=== PATIENT | male | born 1940 | race Caucasian/White ===

== ENCOUNTER 2016-11-26 11:03 | Inpatient (IN) | payer OTHER, BC ==
[~2016-11-26] VITALS: Ht 172.7 cm; Wt 92.3 kg
[~2016-11-26 11:03] MED LIST: ALLOPURINOL100 MG PO; AMLODIPINE BESYL5 MG PO; ATOVAQUONE750 MG/5 M PO; CALCITRIOL0.25 MCG PO; CALCIUM 500 +1 EAC4 PO; CELLCEPT500 MG PO; CO Q-10 RED YE1 EACH PO; CO Q-10100 MG PO; CO Q-10200 MG PO; CRESTOR40 MG PO; DAILY MULTIPLE1 EACH PO; ENDOCET 5-3251 EACH PO; FINASTERIDE5 MG PO; FLOMAX0.4 MG PO; FOSRENOL500 MG PO; FUROSEMIDE40 MG PO; HYDROXYCHLOROQ200 MG PO; IRON325 M1 PO; LASIX40 MG PO; METOPROLOL SUC100 MG PO; MYCOPHENOLATE500 MG PO; PLAQUENIL200 MG PO; PREDNISONE10 M1 PO; RED YEAST RICE600 M1 PO; SODIUM BICARBO325 MG PO; TAMSULOSIN HCL0.4 MG PO; TOPROL XL50 MG PO; VITAMIN B-122500 MCG SL; VITAMIN B-12500 MC5 SL
[2016-11-26 11:53] LABS: EOSINOPHIL (%) 3.9 % (0-5); EOSINOPHIL COUNT 0.1 K/uL (0-0.3); HEMATOCRIT 28.5 % (38.0-50.0); IMMATURE GRANULOCYTE (%) 0.3 % (0.0-0.7); IMMATURE GRANULOCYTE COUNT 0.1 K/uL; LYMPHOCYTE COUNT 1.1 K/uL (1.0-2.8); MCH 34.1 PG (29.0-34.0); MCHC 33.3 G/DL (30.0-36.0); MCV 102.2 FL (86-99); MEAN PLAT.VOLUME 10.4 uM^3 (9.0-12.4); MONOCYTE (%) 14.6 % (3-12); MONOCYTE COUNT 0.5 K/uL (0-0.8); NEUTROPHIL (%) 50.6 % (45-76); NEUTROPHIL COUNT 1.8 K/uL (1.8-6.4); PLATELET COUNT 77 K/uL (156-360); RBC DIS.WIDTH-CV 13.8 % (11.8-14.6); RBC DIS.WIDTH-SD 49.5 % (39-53); RED BLOOD COUNT 2.79 M/uL (4.00-5.50); WHITE BLOOD COUNT 3.6 K/uL (4.1-10.2)
[2016-11-26 12:10] LABS: CHLORIDE 106 mEq/L (99-109); SODIUM 136 mEq/L (136-147)
[2016-11-26 12:11] LABS: GLUCOSE 85 mg/dL (70-99)
[2016-11-26 12:13] LABS: ANION GAP 13 MEQ/L (2-14); POTASSIUM 6.2 mEq/L (3.7-5.4)
[2016-11-26 12:14] LABS: TROP-I INTERPRETATION NEGATIVE; TROPONIN-I 0.06 ng/mL (0.0-0.30)
[2016-11-26 12:15] LABS: GFR ESTIMATE (CALCULATED) 13 mL/min/
[2016-11-26 12:17] LABS: UREA NITROGEN (BUN) 138 mg/dL (9-23)
[2016-11-26 13:14] LABS: ADD MIUA? NO; BILIRUBIN NEGATIVE; BLOOD NEGATIVE; COLOR YELLOW ((YELLOW)); GLUCOSE (STRIP) NEGATIVE; KETONES NEGATIVE; LEUKOCYTES NEGATIVE; NITRITE NEGATIVE; PROTEIN (STRIP) NEGATIVE; SPECIFIC GRAVITY 1.015 (1.000-1.030); UROBILINOGEN 0.2 MG/DL (0.2-1.0)
[2016-11-26 19:25] LABS: CHLORIDE 107 mEq/L (99-109); POTASSIUM 5.9 mEq/L (3.7-5.4); SODIUM 137 mEq/L (136-147)
[2016-11-26 19:26] LABS: GLUCOSE 98 mg/dL (70-99)
[2016-11-26 19:28] LABS: ANION GAP 13 MEQ/L (2-14)
[2016-11-26 19:30] LABS: GFR ESTIMATE (CALCULATED) 13 mL/min/
[2016-11-26 19:35] LABS: UREA NITROGEN (BUN) 136 mg/dL (9-23)
[2016-11-26 21:23] VITALS: BP 134/75
[2016-11-27 00:33] VITALS: BP 139/71
[2016-11-27 03:52] VITALS: BP 141/68
[2016-11-27 06:03] LABS: HEMATOCRIT 26.2 % (38.0-50.0); MCH 34.4 PG (29.0-34.0); MCV 101.2 FL (86-99); MEAN PLAT.VOLUME 11.1 uM^3 (9.0-12.4); PLATELET COUNT 82 K/uL (156-360); RBC DIS.WIDTH-CV 14.3 % (11.8-14.6); RBC DIS.WIDTH-SD 52.7 % (39-53); RED BLOOD COUNT 2.59 M/uL (4.00-5.50); WHITE BLOOD COUNT 3.9 K/uL (4.1-10.2)
[2016-11-27 06:11] LABS: EOSINOPHIL (%) 3.3 % (0-5); EOSINOPHIL COUNT 0.1 K/uL (0-0.3); IMMATURE GRANULOCYTE (%) 0.3 % (0.0-0.7); MONOCYTE (%) 11.3 % (3-12); MONOCYTE COUNT 0.4 K/uL (0-0.8); NEUTROPHIL (%) 59.8 % (45-76); NEUTROPHIL COUNT 2.3 K/uL (1.8-6.4)
[2016-11-27 06:47] LABS: ALKALINE PHOSPHATASE 330 IU/L (3-129); ANION GAP 13 MEQ/L (2-14); ANION GAP 15 MEQ/L (2-14); CHLORIDE 101 MEQ/L (99-109); CHLORIDE 99 MEQ/L (99-109); GFR ESTIMATE (CALCULATED) 14 mL/min/; GLUCOSE 107 mg/dL (70-99); MAGNESIUM 2.7 mg/dl (1.3-2.7); POTASSIUM 5.2 MEQ/L (3.7-5.4); POTASSIUM 5.3 MEQ/L (3.7-5.4); SAMPLE HEMOLYSIS CHECK 0; SAMPLE ICTERIC CHECK 0; SAMPLE LIPEMIA CHECK 0; SODIUM 134 MEQ/L (136-147); TOTAL BILIRUBIN 1.6 MG/DL (0.0-1.0); URIC ACID 8.3 mg/dL (3.1-9.2)
[2016-11-27 06:53] LABS: UREA NITROGEN (BUN) 127 mg/dL (9-23)
[2016-11-27 06:54] LABS: UREA NITROGEN (BUN) 127 mg/dL (9-23)
[2016-11-27 08:03] VITALS: BP 129/71
[2016-11-27 12:39] VITALS: BP 122/61
[2016-11-27 15:50] VITALS: BP 123/73
[2016-11-27 17:40] LABS: FERRITIN 702 NG/ML (22-322)
[2016-11-27 17:55] LABS: IRON 91 MCG/DL (35-150)
[2016-11-27 20:06] VITALS: BP 145/80
[2016-11-28] VITALS: BP 119/76
[2016-11-28 04:00] VITALS: BP 126/72
[2016-11-28 06:39] LABS: EOSINOPHIL (%) 2.4 % (0-5); EOSINOPHIL COUNT 0.1 K/uL (0-0.3); HEMATOCRIT 25.1 % (38.0-50.0); LYMPHOCYTE COUNT 0.9 K/uL (1.0-2.8); MCH 34.1 PG (29.0-34.0); MCHC 33.9 G/DL (30.0-36.0); MCV 100.8 FL (86-99); MEAN PLAT.VOLUME 11.1 uM^3 (9.0-12.4); MONOCYTE (%) 13.6 % (3-12); MONOCYTE COUNT 0.5 K/uL (0-0.8); NEUTROPHIL COUNT 2.3 K/uL (1.8-6.4); PLATELET COUNT 79 K/uL (156-360); RBC DIS.WIDTH-CV 14.2 % (11.8-14.6); RBC DIS.WIDTH-SD 51.9 % (39-53); RED BLOOD COUNT 2.49 M/uL (4.00-5.50); WHITE BLOOD COUNT 3.8 K/uL (4.1-10.2)
[2016-11-28 07:20] LABS: ANION GAP 10 MEQ/L (2-14); CHLORIDE 101 MEQ/L (99-109); GFR ESTIMATE (CALCULATED) 20 mL/min/; GLUCOSE 85 mg/dL (70-99); POTASSIUM 4.5 MEQ/L (3.7-5.4); SAMPLE HEMOLYSIS CHECK 0; SAMPLE ICTERIC CHECK 0; SAMPLE LIPEMIA CHECK 0; SODIUM 137 MEQ/L (136-147); UREA NITROGEN (BUN) 78 mg/dL (9-23)
[2016-11-28 12:00] VITALS: BP 132/80
[2016-11-28 12:05] LABS: AHBS INDEX 0; HEPATITIS B SURFACE ANTIBODY Nonreactive; HPCA INDEX 0.25
[2016-11-28 12:11] LABS: ANTI-HEPATITIS B CORE (TOTAL) Nonreactive; HBSG INDEX 0.18
[2016-11-28 12:12] LABS: ANTI-HEPATITIS A VIRUS (IGM) Nonreactive; HAV INDEX 0.27; HPCA INDEX 0.28
[2016-11-28 12:13] LABS: ANTI-HEPATITIS B CORE (IGM) Nonreactive; HBC IgM INDEX 0.06
[2016-11-28 16:00] VITALS: BP 120/72
[2016-11-28 19:35] VITALS: BP 125/72
[2016-11-29] VITALS: BP 126/65
[2016-11-29 04:00] VITALS: BP 127/71
[2016-11-29 07:26] LABS: EOSINOPHIL (%) 3.8 % (0-5); EOSINOPHIL COUNT 0.1 K/uL (0-0.3); HEMATOCRIT 26.2 % (38.0-50.0); IMMATURE GRANULOCYTE (%) 0.3 % (0.0-0.7); LYMPHOCYTE COUNT 0.9 K/uL (1.0-2.8); MCH 33.9 PG (29.0-34.0); MCHC 33.2 G/DL (30.0-36.0); MCV 101.9 FL (86-99); MEAN PLAT.VOLUME 11.1 uM^3 (9.0-12.4); MONOCYTE (%) 14.1 % (3-12); MONOCYTE COUNT 0.5 K/uL (0-0.8); NEUTROPHIL COUNT 2.1 K/uL (1.8-6.4); PLATELET COUNT 77 K/uL (156-360); RBC DIS.WIDTH-CV 14.4 % (11.8-14.6); RBC DIS.WIDTH-SD 53.4 % (39-53); RED BLOOD COUNT 2.57 M/uL (4.00-5.50); WHITE BLOOD COUNT 3.7 K/uL (4.1-10.2)
[2016-11-29 07:32] LABS: ANION GAP 9 MEQ/L (2-14); CHLORIDE 100 MEQ/L (99-109); GFR ESTIMATE (CALCULATED) 22 mL/min/; GLUCOSE 79 mg/dL (70-99); POTASSIUM 4.2 MEQ/L (3.7-5.4); SAMPLE HEMOLYSIS CHECK 0; SAMPLE ICTERIC CHECK 0; SAMPLE LIPEMIA CHECK 0; SODIUM 137 MEQ/L (136-147); UREA NITROGEN (BUN) 54 mg/dL (9-23)
[2016-11-29 07:33] VITALS: BP 124/77
[2016-11-29 12:18] VITALS: BP 109/69
[2016-11-29 15:38] VITALS: BP 122/69
[2016-11-29 20:00] VITALS: BP 121/69
[2016-11-30] VITALS: BP 115/76
[2016-11-30 04:00] VITALS: BP 101/51
[2016-11-30 07:20] LABS: EOSINOPHIL COUNT 0.2 K/uL (0-0.3); HEMATOCRIT 27.5 % (38.0-50.0); IMMATURE GRANULOCYTE (%) 0.2 % (0.0-0.7); LYMPHOCYTE COUNT 1.1 K/uL (1.0-2.8); MCHC 33.1 G/DL (30.0-36.0); MCV 102.6 FL (86-99); MEAN PLAT.VOLUME 11.1 uM^3 (9.0-12.4); MONOCYTE (%) 13.9 % (3-12); MONOCYTE COUNT 0.6 K/uL (0-0.8); NEUTROPHIL (%) 53.8 % (45-76); NEUTROPHIL COUNT 2.2 K/uL (1.8-6.4); PLATELET COUNT 81 K/uL (156-360); RBC DIS.WIDTH-CV 14.3 % (11.8-14.6); RBC DIS.WIDTH-SD 53.7 % (39-53); RED BLOOD COUNT 2.68 M/uL (4.00-5.50)
[2016-11-30 07:38] LABS: ANION GAP 9 MEQ/L (2-14); CHLORIDE 97 MEQ/L (99-109); GFR ESTIMATE (CALCULATED) 19 mL/min/; GLUCOSE 76 mg/dL (70-99); POTASSIUM 4.6 MEQ/L (3.7-5.4); SAMPLE HEMOLYSIS CHECK 0; SAMPLE ICTERIC CHECK 0; SAMPLE LIPEMIA CHECK 0; SODIUM 133 MEQ/L (136-147); UREA NITROGEN (BUN) 69 mg/dL (9-23)
[2016-11-30 08:14] VITALS: BP 98/62
[2016-11-30 16:00] VITALS: BP 115/69
[2016-11-30] MEDS ORDERED: METOPROLOL SUCC50 MG PO (16:52)
== END 2016-11-30 18:31 | disposition home or self-care (01) | DRG 683 ==
LOC: EME 11:03 → 5SOUTH 14:42 → EDOF 14:42 → 5SOUTH 14:42
PROVIDERS: Emergency Medicine; Hospitalist; Internal Medicine; Internal Medicine Nephrology
PROC: 0HQ1XZZ Repair Face Skin, External Approach (ICD-10-PCS; principal; 2016-11-26)
PROC: 5A1D60Z (ICD-10-PCS; 2016-11-27)
DX: N17.9 Acute kidney failure, unspecified (principal); I13.2 Hypertensive heart and chronic kidney disease with heart failure and with stage 5 chronic kidney disease, or end stage renal disease; E87.2 Acidosis; D61.818 Other pancytopenia; M32.14 Glomerular disease in systemic lupus erythematosus; E87.5 Hyperkalemia; E86.0 Dehydration; S02.2XXA Fracture of nasal bones, initial encounter for closed fracture; S00.03XA Contusion of scalp, initial encounter; W01.10XA Fall on same level from slipping, tripping and stumbling with subsequent striking against unspecified object, initial encounter; I25.10 Atherosclerotic heart disease of native coronary artery without angina pectoris; I50.42 Chronic combined systolic (congestive) and diastolic (congestive) heart failure; N18.5 Chronic kidney disease, stage 5; R55 Syncope and collapse; E78.5 Hyperlipidemia, unspecified; Z95.1 Presence of aortocoronary bypass graft; I25.5 Ischemic cardiomyopathy; H10.32 Unspecified acute conjunctivitis, left eye; N40.0 Benign prostatic hyperplasia without lower urinary tract symptoms; D63.1 Anemia in chronic kidney disease; D50.9 Iron deficiency anemia, unspecified; I45.10 Unspecified right bundle-branch block; I44.0 Atrioventricular block, first degree; S01.21XA Laceration without foreign body of nose, initial encounter; S01.111A Laceration without foreign body of right eyelid and periocular area, initial encounter; S20.212A Contusion of left front wall of thorax, initial encounter
CPT/HCPCS: 70450; 70486; 71020; 76770; 80048; 80048 91; 80053; 80074; 81003; 82607; 82728; 82746; 83540; 83735; 84100; 84466; 84484; 84550; 85025; 85027; 86704; 86706; 86803; 87340; 93005; 93306; 99281; 99285; J0610; J1940; J7050; J7517

== ENCOUNTER 2017-06-07 13:48 | Day surgery (SDC) | payer OTHER, BC ==
[~2017-06-07 13:48] MED LIST changes: +METOPROLOL SUCC50 MG PO
[2017-06-07] MEDS ORDERED: CARVEDILOL6.25 MG PO (14:26)
[2017-06-07] MEDS ORDERED: CLOPIDOGREL75 MG PO (14:26)
[2017-06-07 15:49] LABS: METH RESISTANT S AUREUS PCR NEGATIVE (NEGATIVE)
[2017-06-07 15:57] LABS: PROBE CHECK PASS; SPECIMEN PROCESSING CONTROL PASS
== END 2017-06-07 17:17 | disposition home or self-care (01) ==
LOC: CATH 13:48
PROVIDERS: Surgery
PROC: 057Y0ZZ Dilation of Upper Vein, Open Approach (ICD-10-PCS; principal; 2017-06-07)
DX: T82.868A Thrombosis due to vascular prosthetic devices, implants and grafts, initial encounter (principal); N18.6 End stage renal disease; Z99.2 Dependence on renal dialysis; M32.9 Systemic lupus erythematosus, unspecified; Z85.820 Personal history of malignant melanoma of skin; Z95.1 Presence of aortocoronary bypass graft
CPT/HCPCS: 87641; C1725; C1757; C1769; C1894; C2628; J0690; J1644; J2250; J3010; S0020